=== PATIENT | male | born 1970 ===

== ENCOUNTER 2025-02-24 07:48 | Day surgery (SDC) | payer OTHER ==
[2025-02-18 09:40] VITALS: BP 139/88
[2025-02-18 10:13] LABS: URINE APPEARANCE Clear; URINE BILIRRUBIN Negative (NEGATIVE); URINE BLOOD Negative; URINE COLOR Dark Yellow; URINE GLUCOSE Negative (NEGATIVE); URINE KETONE Trace (NEGATIVE); URINE LEUKOCYTE Negative; URINE NITRATE Negative; URINE PROTEIN Negative (NEGATIVE); URINE UROBILINOGEN 0.2 E.U./dl
[2025-02-18 10:16] LABS: BASO % 0.8 % (0.1-1.2); EOS # 0.13 (0.04-0.54); EOS % 1.8 % (0.7-7.0); LYMPH # 2.26 (1.18-3.74); LYMPH % 30.6 % (19.3-53.1); MEAN PLATELET VOLUME 10.50 fl (9.4-12.4); MONO # 0.88 (0.24-0.82); MONO % 11.9 % (4.7-12.5); NEUT # 4.01 (1.56-6.13); NEUT % 54.4 % (34.0-71.1); RED CELL DISTRIBUTION WIDTH 12.0 % (11.6-14.4)
[2025-02-18 10:17] LABS: URINE BACTERIA 22.7 uL (0.0-1933); URINE EPITHELIAL CELLS 3.2 uL (0.0-38.8); URINE RBC 3.3 uL (0.0-20.8); URINE WBC 4.2 uL (0.0-23.2)
[2025-02-18 10:18] LABS: URINE CAST 0.00 uL (0.0-1.40)
[2025-02-18 10:38] LABS: INR 1.07
[2025-02-18 10:53] LABS: ALT/SGPT 93.0 U/L (12-78); AST/SGOT 35.0 U/L (15-37); BILIRUBIN TOTAL 0.81 mg/dL (0.3-1.2); BUN CREA RATIO 14.0 (7.0-25.0); CREATININE SERUM 0.96 mg/dL (0.70-1.30); GFR 81.32; GLOBULINA 3.4 G/DL (2.4-3.5); GLUCOSE FASTING 99.0 mg/dL (65-100); OSMOLALITY SERUM 280.0 MOSM/KG (275-295)
[~2025-02-24] VITALS: Ht 170.2 cm; Wt 88.5 kg
[~2025-02-24 07:48] MED LIST: DILTIAZEM ER180 M3 PO; NASACORT16.9 ML NASAL; TAMS0.4C PO; VASOTEC20 MG PO
[2025-02-24] MEDS ORDERED: CEFAZOLIN SODIUM 1,000 MG VIAL IV SCH (12:15)
== END 2025-02-24 17:15 | disposition home or self-care (01) ==
LOC: CIR.AMB 07:48
PROVIDERS: ATTEND Surgery
DX: K42.0 Umbilical hernia with obstruction, without gangrene (principal)
CPT/HCPCS: 49594; C1781